=== PATIENT | male | born 1950 | race Caucasian/White ===

== ENCOUNTER 2025-07-11 11:12 | Outpatient (REF) | payer MEDICARE, SELFPAY ==
[2025-07-11 11:26] LABS: MANUAL DIFF FLAG NO
[2025-07-11 11:27] LABS: Hematocrit 50.4 % (42.0-52.0); Hemoglobin 17.3 g/dl (14.0-18.0); Imm Gran Abs Auto 0.03 X10*3/uL (0.00-0.03); Imm Gran Pct Auto 0.4 % (0.0-0.4); Lymphocytes Absolute Auto 1.7 X10*3/uL (1.2-4.9); Mean Corpuscular HGB Conc 34.3 g/dl (31.0-36.0); Mean Corpuscular Hemoglobin 28.9 pg (27.0-33.0); Mean Corpuscular Volume 84.3 fL (80.0-98.0); NRBC Abs Auto 0.000 X10*3/uL (0.0-0.012); NRBC Pct Auto 0.0 /100WBC (0.0-0.2); Platelet Count 258 X10*3/uL (160-400); Red Blood Count 5.98 X10*6/uL (4.60-5.80); White Blood Count 8.5 X10*3/uL (4.8-10.8)
--- OUTSIDE RECORDS SUMMARY | 2025-07-11 15:18 | XMS_ITS | Clinical Summary ---
Author Organization [facility] [employer] Address [address] [facility] [place] [address] Care Team Providers Care Mold Cleaning And Storage Supervisor Name Role Phone Pcp, No Primary Care Provider Social History Tobacco Use Types Packs/Day Years Used Date Smoking Tobacco: Never Assessed Sex and Gender Information Value Date Recorded Sex Assigned at Not on file Legal Sex Male 3:49 PM EST Gender Identity Not on file Sexual Orientation Not on file Plan of Treatment Health Maintenance Due Date Last Done Comments Colorectal Cancer: COLONOSCO PY Screening every 10 yrs (or Modifier) 1952 Depression: Screening Annual ly using PHQ-2/9 in Adults 18 yrs or above (or HM Modifier)([facility]) 1970 Hepatitis C Virus Infection in Adolescents and Adults: Screening (or Modifier) ([facility]) 1970 SDNC Screening Reminder: Yesi atkins for all adults ([facility]) 1970 Tobacco Smoking Cessation: i n Adults excluding Women: Behavioral and Pharmacotherapy Interventions ([facility]) 1970 DTaP/Tdap/Td Vaccines ([facility]) (1 - Tdap) 1971 Colorectal Cancer Screening 45 -75 Yrs (or HM Modifier ) 1997 Colorectal Cancer: FLEXIBLE SIGMOIDOSCOPY Screening every 5 yrs 1997 Colorectal Cancer: Fecal Imm unochemical Test (FIT) Annually [facility] 1997 Colorectal Cancer: High-sens itivity gFOBT Screening Annually [facility] 1997 Colorectal Cancer: Stool Col oguard Screening every 3 yrs 1997 Colorectal Cancer:CT Colonography Screening every 5 yr s 1997 Pneumococcal Vaccination Scr eening: Patients 50+ yrs of age ([facility]) (1 of 1 - PCV) 2002 Zoster/Shingles Vaccine Seri es Screening: Adults aged 18+ yrs (or HM Modifiers)([facility]) (1 of 2) 2002 Flu Vaccination: Ages 65+: Y early High Dose Recommended (or Modifier)([facility]) 05/26/2025 RSV Vaccines (1 - 1-dose 75+ series) 2027 Medical Devices Not on file Insurance [facility] Care Teams Mold Cleaning And Storage Supervisor Relationship Specialty Start Date End Date Pcp, Savanah PCP - General Family Medicine 12/08/21
== END 2025-07-11 11:13 | disposition home or self-care (01) ==
LOC: HO.BBR 11:12
PROVIDERS: PCP Family Medicine; Visit Provider Nurse Practitioner Family
DX: D45 Polycythemia vera (principal)
CPT/HCPCS: 36415; 85014; 85018; 85025; 99195

== ENCOUNTER 2025-07-25 10:57 | Outpatient (REF) | payer MEDICARE, SELFPAY ==
[2025-07-25 11:07] LABS: MANUAL DIFF FLAG NO
[2025-07-25 11:10] LABS: Hematocrit 51.9 % (42.0-52.0); Hemoglobin 17.9 g/dl (14.0-18.0); Imm Gran Abs Auto 0.03 X10*3/uL (0.00-0.03); Imm Gran Pct Auto 0.3 % (0.0-0.4); Lymphocytes Absolute Auto 2.4 X10*3/uL (1.2-4.9); Mean Corpuscular HGB Conc 34.5 g/dl (31.0-36.0); Mean Corpuscular Hemoglobin 29.1 pg (27.0-33.0); Mean Corpuscular Volume 84.3 fL (80.0-98.0); NRBC Abs Auto 0.000 X10*3/uL (0.0-0.012); NRBC Pct Auto 0.0 /100WBC (0.0-0.2); Platelet Count 312 X10*3/uL (160-400); Red Blood Count 6.16 X10*6/uL (4.60-5.80); White Blood Count 11.3 X10*3/uL (4.8-10.8)
[2025-07-25 12:16] LABS: Alanine Aminotransferase 38 U/L (0-40); Albumin Level 4.7 g/dL (3.5-5.0); Alkaline Phosphatase 59 U/L (39-117); Anion Gap 16 (12-20); Aspartate Amino Transferase 54 U/L (5-37); Blood Urea Nitrogen 30 mg/dL (9-16); Calcium 9.6 mg/dL (8.4-10.2); Carbon Dioxide 25 mmol/L (22-29); Chloride 106 mmol/L (96-108); Estimated Glomerular Filt Rate 54; Ferritin 277 ng/mL (20-250); Iron 155 mcg/dL (45-160); Percent Iron Saturation 40 % (15-50); Potassium 4.5 mmol/L (3.3-5.1); Sodium 142 mmol/L (135-145); Total Iron Binding Capacity 384 mcg/dL (228-428); Total Protein 7.7 g/dL (6.5-8.0); Unsaturated Iron Binding 229 ug/dL; Uric Acid 7.3 mg/dL (3.4-7.0)
== END 2025-07-25 10:58 | disposition home or self-care (01) ==
LOC: HO.BBR 10:57
PROVIDERS: PCP Family Medicine; Visit Provider Nurse Practitioner Family
DX: D45 Polycythemia vera (principal)
CPT/HCPCS: 36415; 80053; 82728; 83540; 84550; 85025; 99195

== ENCOUNTER 2025-08-10 10:58 | Outpatient (REF) | payer MEDICARE, SELFPAY ==
[2025-08-10 11:09] LABS: MANUAL DIFF FLAG NO
[2025-08-10 11:12] LABS: Hematocrit 46.5 % (42.0-52.0); Hemoglobin 15.2 g/dl (14.0-18.0); Imm Gran Abs Auto 0.03 X10*3/uL (0.00-0.03); Imm Gran Pct Auto 0.3 % (0.0-0.4); Lymphocytes Absolute Auto 1.7 X10*3/uL (1.2-4.9); Mean Corpuscular HGB Conc 32.7 g/dl (31.0-36.0); Mean Corpuscular Hemoglobin 28.2 pg (27.0-33.0); Mean Corpuscular Volume 86.3 fL (80.0-98.0); NRBC Abs Auto 0.000 X10*3/uL (0.0-0.012); NRBC Pct Auto 0.0 /100WBC (0.0-0.2); Platelet Count 276 X10*3/uL (160-400); Red Blood Count 5.39 X10*6/uL (4.60-5.80); White Blood Count 9.3 X10*3/uL (4.8-10.8)
[2025-08-10 12:21] LABS: Alanine Aminotransferase 27 U/L (0-40); Albumin Level 4.3 g/dL (3.5-5.0); Alkaline Phosphatase 55 U/L (39-117); Anion Gap 13 (12-20); Aspartate Amino Transferase 35 U/L (5-37); Blood Urea Nitrogen 20 mg/dL (9-16); Calcium 9.1 mg/dL (8.4-10.2); Carbon Dioxide 25 mmol/L (22-29); Chloride 105 mmol/L (96-108); Estimated Glomerular Filt Rate > 60; Iron 50 mcg/dL (45-160); Percent Iron Saturation 15 % (15-50); Potassium 4.1 mmol/L (3.3-5.1); Sodium 139 mmol/L (135-145); Total Iron Binding Capacity 341 mcg/dL (228-428); Total Protein 7.2 g/dL (6.5-8.0); Unsaturated Iron Binding 291 ug/dL; Uric Acid 6.0 mg/dL (3.4-7.0)
[2025-08-10 12:24] LABS: Ferritin 116 ng/mL (20-250)
--- OUTSIDE RECORDS SUMMARY | 2025-08-10 13:55 | XMS_ITS | Clinical Summary ---
Author Organization [facility] [employer] Address [address] [facility] [place] [address] Care Team Providers Care Core Finisher Name Role Phone Pcp, No Primary Care Provider [phone] Social History Tobacco Use Types Packs/Day Years [...] Adults 18 yrs or above (or HM Modifier)([facility]) 1970 Hepatitis C Virus Infection in Adolescents and Adults: Screening (or Modifier) ([facility]) 1970 SDSD Screening Reminder: Yesi atkins for all adults ([facility]) 1970 Tobacco Smoking Cessation: i n Adults excluding Women: Behavioral and Pharmacotherapy Interventions ([facility]) 1970 DTaP/Tdap/Td Vaccines ([facility]) (1 - Tdap) 1971 Colorectal Cancer Screening 45 -75 Yrs (or HM Modifier ) 1997 Colorectal Cancer: FLEXIBLE SIGMOIDOSCOPY Screening every 5 yrs 1997 Colorectal Cancer: Fecal Imm unochemical Test (FIT) Annually [facility] 1997 Colorectal Cancer: High-sens itivity gFOBT Screening Annually [facility] 1997 Colorectal Cancer: Stool Col oguard Screening every 3 yrs 1997 Colorectal Cancer:CT Colonography Screening every 5 yr s 1997 Pneumococcal Vaccination Scr eening: Patients 50+ yrs of age ([facility]) (1 of 1 - PCV) 2002 Zoster/Shingles Vaccine Seri es Screening: Adults aged 18+ yrs (or HM Modifiers)([facility]) (1 of 2) 2002 Flu Vaccination: Ages 65+: Y early High Dose Recommended (or Modifier)([facility]) 05/26/2025 COVID-19 Vaccine Screening: Initial Series and Booster Status ([facility]) (2023- season) 2025 RSV Vaccines (1 - 1-dose 75+ series) 2027 Medical Devices Not on file Insurance [facility] Care Teams Core Finisher Relationship Specialty Start Date End Date Pcp, Savanah PCP - General Family Medicine 12/08/21
== END 2025-08-10 10:59 | disposition home or self-care (01) ==
LOC: HO.BBR 10:58
PROVIDERS: PCP Family Medicine; Visit Provider Nurse Practitioner Family
DX: D45 Polycythemia vera (principal)
CPT/HCPCS: 36415; 80053; 82728; 83540; 84550; 85018; 85025; 99195

== ENCOUNTER 2025-08-24 10:51 | Outpatient (REF) | payer MEDICARE, SELFPAY ==
[2025-08-24 11:01] LABS: MANUAL DIFF FLAG NO
[2025-08-24 11:03] LABS: Hematocrit 48.8 % (42.0-52.0); Hemoglobin 15.9 g/dl (14.0-18.0); Imm Gran Abs Auto 0.04 X10*3/uL (0.00-0.03); Imm Gran Pct Auto 0.4 % (0.0-0.4); Lymphocytes Absolute Auto 2.1 X10*3/uL (1.2-4.9); Mean Corpuscular HGB Conc 32.6 g/dl (31.0-36.0); Mean Corpuscular Hemoglobin 28.4 pg (27.0-33.0); Mean Corpuscular Volume 87.3 fL (80.0-98.0); NRBC Abs Auto 0.000 X10*3/uL (0.0-0.012); NRBC Pct Auto 0.0 /100WBC (0.0-0.2); Platelet Count 257 X10*3/uL (160-400); Red Blood Count 5.59 X10*6/uL (4.60-5.80); White Blood Count 9.3 X10*3/uL (4.8-10.8)
[2025-08-24 11:54] LABS: Alanine Aminotransferase 23 U/L (0-40); Albumin Level 4.6 g/dL (3.5-5.0); Alkaline Phosphatase 57 U/L (39-117); Anion Gap 12 (12-20); Aspartate Amino Transferase 39 U/L (5-37); Blood Urea Nitrogen 18 mg/dL (9-16); Calcium 9.3 mg/dL (8.4-10.2); Carbon Dioxide 27 mmol/L (22-29); Chloride 103 mmol/L (96-108); Estimated Glomerular Filt Rate 60; Iron 100 mcg/dL (45-160); Percent Iron Saturation 27 % (15-50); Potassium 4.0 mmol/L (3.3-5.1); Sodium 138 mmol/L (135-145); Total Iron Binding Capacity 375 mcg/dL (228-428); Total Protein 7.9 g/dL (6.5-8.0); Unsaturated Iron Binding 275 ug/dL; Uric Acid 5.6 mg/dL (3.4-7.0)
[2025-08-24 12:14] LABS: Ferritin 74 ng/mL (20-250)
--- OUTSIDE RECORDS SUMMARY | 2025-08-24 13:34 | XMS_ITS | Clinical Summary ---
Author Organization [facility] [employer] Address [address] [facility] [place] [address] Care Team Providers Care Rn Informatics Name Role Phone Pcp, No Primary Care Provider [phone] Social History Tobacco Use Types Packs/Day Years [...] Adults 18 yrs or above (or HM Modifier)([facility]) 1970 Hepatitis C Virus Infection in Adolescents and Adults: Screening (or Modifier) ([facility]) 1970 SDOK Screening Reminder: Yesi atkins for all adults ([facility]) 1970 Tobacco Smoking Cessation: i n Adults excluding Women: Behavioral and Pharmacotherapy Interventions ([facility]) 1970 DTaP/Tdap/Td Vaccines ([facility]) (1 - Tdap) 1971 Colorectal Cancer Screening 45 -75 Yrs (or HM Modifier ) 1997 Colorectal Cancer: FLEXIBLE SIGMOIDOSCOPY Screening every 5 yrs 1997 Colorectal Cancer: Fecal Imm unochemical Test (FIT) Annually [facility] 1997 Colorectal Cancer: High-sens itivity gFOBT Screening Annually [facility] 1997 Colorectal Cancer: Stool Col oguard Screening every 3 yrs 1997 Colorectal Cancer:CT Colonography Screening every 5 yr s 1997 Pneumococcal Vaccination Scr eening: Patients 50+ yrs of age ([facility]) (1 of 1 - PCV) 2002 Zoster/Shingles Vaccine Seri es Screening: Adults aged 18+ yrs (or HM Modifiers)([facility]) (1 of 2) 2002 Flu Vaccination: Ages 65+: Y early High Dose Recommended (or Modifier)([facility]) 05/26/2025 COVID-19 Vaccine Screening: Initial Series and Booster Status ([facility]) ( - 2024- season) 2025 RSV Vaccines (1 - 1-dose 75+ series) 2027 Medical Devices Not on file Insurance [facility] Care Teams Rn Informatics Relationship Specialty Start Date End Date Pcp, Savanah PCP - General Family Medicine 12/08/21
== END 2025-08-24 10:52 | disposition home or self-care (01) ==
LOC: HO.BBR 10:51
PROVIDERS: PCP Family Medicine; Visit Provider Nurse Practitioner Family
DX: D45 Polycythemia vera (principal)
CPT/HCPCS: 36415; 80053; 82728; 83540; 84550; 85018; 85025; 99195

== ENCOUNTER 2025-09-06 11:03 | Outpatient (REF) | payer MEDICARE, SELFPAY ==
[2025-09-06 11:13] LABS: MANUAL DIFF FLAG NO
[2025-09-06 11:15] LABS: Hematocrit 46.5 % (42.0-52.0); Hemoglobin 15.3 g/dl (14.0-18.0); Imm Gran Abs Auto 0.03 X10*3/uL (0.00-0.03); Imm Gran Pct Auto 0.3 % (0.0-0.4); Lymphocytes Absolute Auto 2.5 X10*3/uL (1.2-4.9); Mean Corpuscular HGB Conc 32.9 g/dl (31.0-36.0); Mean Corpuscular Hemoglobin 28.7 pg (27.0-33.0); Mean Corpuscular Volume 87.2 fL (80.0-98.0); NRBC Abs Auto 0.000 X10*3/uL (0.0-0.012); NRBC Pct Auto 0.0 /100WBC (0.0-0.2); Platelet Count 349 X10*3/uL (160-400); Red Blood Count 5.33 X10*6/uL (4.60-5.80); White Blood Count 9.6 X10*3/uL (4.8-10.8)
[2025-09-06 12:06] LABS: Alanine Aminotransferase 24 U/L (0-40); Albumin Level 4.6 g/dL (3.5-5.0); Alkaline Phosphatase 55 U/L (39-117); Anion Gap 13 (12-20); Aspartate Amino Transferase 43 U/L (5-37); Blood Urea Nitrogen 22 mg/dL (9-16); Calcium 9.3 mg/dL (8.4-10.2); Carbon Dioxide 27 mmol/L (22-29); Chloride 103 mmol/L (96-108); Estimated Glomerular Filt Rate 58; Iron 67 mcg/dL (45-160); Percent Iron Saturation 18 % (15-50); Potassium 4.5 mmol/L (3.3-5.1); Sodium 138 mmol/L (135-145); Total Iron Binding Capacity 376 mcg/dL (228-428); Total Protein 7.9 g/dL (6.5-8.0); Unsaturated Iron Binding 309 ug/dL; Uric Acid 6.0 mg/dL (3.4-7.0)
[2025-09-06 12:24] LABS: Ferritin 50 ng/mL (20-250)
--- OUTSIDE RECORDS SUMMARY | 2025-09-06 13:39 | XMS_ITS | Clinical Summary ---
Author Organization [facility] Address [address] [place] [address] Care Team Providers Care Bilingual Kindergarten Teacher Name Role Phone Pcp, No Primary Care Provider [phone] Social History Tobacco Use Types Packs/Day Years Used Date Smoking Tobacco: Never Assessed Sex and Gender Information Value Date Recorded Sex Assigned at Not on file Legal Sex Male 3:49 PM EST Gender Identity Not on file Sexual Orientation Not on file Plan of Treatment Not on file Medical Devices Not on file Insurance [facility] Care Teams Bilingual Kindergarten Teacher Relationship Specialty Start Date End Date Pcp, Savanah PCP - General Family Medicine 12/08/21
== END 2025-09-06 11:04 | disposition home or self-care (01) ==
LOC: HO.BBR 11:03
PROVIDERS: PCP Family Medicine; Visit Provider Nurse Practitioner Family
DX: D45 Polycythemia vera (principal)
CPT/HCPCS: 36415; 80053; 82728; 83540; 84550; 85018; 85025; 99195

== ENCOUNTER 2025-09-20 10:56 | Outpatient (REF) | payer MEDICARE, SELFPAY ==
[2025-09-20 11:09] LABS: MANUAL DIFF FLAG NO
[2025-09-20 11:13] LABS: Hematocrit 43.3 % (42.0-52.0); Hemoglobin 14.0 g/dl (14.0-18.0); Imm Gran Abs Auto 0.03 X10*3/uL (0.00-0.03); Imm Gran Pct Auto 0.3 % (0.0-0.4); Lymphocytes Absolute Auto 2.4 X10*3/uL (1.2-4.9); Mean Corpuscular HGB Conc 32.3 g/dl (31.0-36.0); Mean Corpuscular Hemoglobin 27.6 pg (27.0-33.0); Mean Corpuscular Volume 85.2 fL (80.0-98.0); NRBC Abs Auto 0.000 X10*3/uL (0.0-0.012); NRBC Pct Auto 0.0 /100WBC (0.0-0.2); Platelet Count 302 X10*3/uL (160-400); Red Blood Count 5.08 X10*6/uL (4.60-5.80); White Blood Count 9.5 X10*3/uL (4.8-10.8)
[2025-09-20 12:17] LABS: Alanine Aminotransferase 25 U/L (0-40); Albumin Level 4.6 g/dL (3.5-5.0); Alkaline Phosphatase 55 U/L (39-117); Anion Gap 11 (12-20); Aspartate Amino Transferase 39 U/L (5-37); Blood Urea Nitrogen 18 mg/dL (9-16); Calcium 9.4 mg/dL (8.4-10.2); Carbon Dioxide 28 mmol/L (22-29); Chloride 104 mmol/L (96-108); Estimated Glomerular Filt Rate 59; Iron 27 mcg/dL (45-160); Percent Iron Saturation 7 % (15-50); Potassium 3.9 mmol/L (3.3-5.1); Sodium 139 mmol/L (135-145); Total Iron Binding Capacity 392 mcg/dL (228-428); Total Protein 7.7 g/dL (6.5-8.0); Unsaturated Iron Binding 365 ug/dL; Uric Acid 6.4 mg/dL (3.4-7.0)
[2025-09-20 12:34] LABS: Ferritin 33 ng/mL (20-250)
== END 2025-09-20 10:57 | disposition home or self-care (01) ==
LOC: HO.BBR 10:56
PROVIDERS: PCP Family Medicine; Visit Provider Nurse Practitioner Family
DX: D45 Polycythemia vera (principal)
CPT/HCPCS: 36415; 80053; 82728; 83540; 84550; 85018; 85025; 99195

== ENCOUNTER → 2025-09-25 09:20 | Outpatient (BNV) | payer MEDICARE, SELFPAY | PROVIDERS: PCP Family Medicine; Referring Provider Family Medicine; Visit Provider Nurse Practitioner Family | DX: D45 Polycythemia vera (principal) | CPT/HCPCS: 99204; 99213 ==

== ENCOUNTER 2025-10-11 08:53 | Outpatient (REF) | payer MEDICARE, SELFPAY ==
--- NOTE | ~2025-10-11 | US_ITS ---
EXAMINATION: US ABDOMEN COMPLETE CLINICAL INFORMATION: Left upper quadrant pain. COMPARISON: None available. TECHNIQUE: Real-time ultrasound of the abdomen using grayscale technique. FINDINGS: PANCREAS: No peripancreatic fluid collections. ABDOMINAL AORTA: The proximal, mid, and distal segments are normal in caliber. INFERIOR VENA CAVA: Visualized portions are normal. LIVER: Liver measures 20 cm. Increased echotexture. No nodular surface. No solid or cystic lesion. No intrahepatic biliary ductal dilatation. GALLBLADDER: Intraluminal hyperechoic mobile lesion with posterior shadowing measuring 1 cm maximum dimension. No pericholecystic fluid collection or gallbladder wall thickening. COMMON BILE DUCT 6 mm. RIGHT KIDNEY: 15 cm. Normal echotexture. No hydronephrosis. Renal cortical thickness is normal. There is a 4.5 cm exophytic mixed iso and hypoechoic lesion in the upper pole with the peripheral flow on color Doppler interrogation. There is a 4 cm exophytic thin septated anechoic lesion in the midportion without flow on color Doppler interrogation. Questionable nodular component.. LEFT KIDNEY: 12 cm. Normal echotexture. Renal cortical thickness is normal. No hydronephrosis. No solid or cystic lesion.. SPLEEN: 11 cm. No gross solid or cystic lesion.. FREE FLUID: None. US/US abdomen complete IMPRESSION: 4.5 cm exophytic mass, right kidney. Recommend dedicated IV contrast enhanced CT versus MRI renal mass protocol for further imaging elevation. Cholelithiasis. Hepatomegaly and hepatic steatosis. No hydronephrosis. 4 cm septated cystic lesion, right kidney. Findings communicated via [employer] connect to the nurse practitioner, Sarita Park on October 11, 2025 at 11:22 AM Electronically signed by: Chas Voss MD 10/11/2025 11:24 AM [facility]
--- OUTSIDE RECORDS SUMMARY | 2025-10-11 09:35 | XMS_ITS | Clinical Summary ---
Author Organization [facility] Address [address] [place] [address] Care Team Providers Care Dobby Loom Weaver Name Role Phone Pcp, No Primary Care Provider [phone] Social History Tobacco Use Types Packs/Day Years Used Date Smoking Tobacco: Never Assessed Sex and Gender Information Value Date Recorded Sex Assigned at Not on file Legal Sex Male 3:49 PM EST Gender Identity Not on file Sexual Orientation Not on file Plan of Treatment Not on file Medical Devices Not on file Insurance [facility] Care Teams Dobby Loom Weaver Relationship Specialty Start Date End Date Pcp, Savanah PCP - General Family Medicine 12/08/21
== END 2025-10-11 08:54 | disposition home or self-care (01) ==
LOC: HO.US 08:53
PROVIDERS: PCP Family Medicine; Visit Provider Nurse Practitioner Family
DX: D45 Polycythemia vera (principal); R10.12 Left upper quadrant pain
CPT/HCPCS: 76700

== ENCOUNTER → 2025-10-11 08:55 | Outpatient (BNV) | payer MEDICARE, SELFPAY | PROVIDERS: PCP Family Medicine; Visit Provider Radiology Diagnostic Radiology | DX: K80.20 Calculus of gallbladder without cholecystitis without obstruction (principal); K76.0 Fatty (change of) liver, not elsewhere classified; R16.0 Hepatomegaly, not elsewhere classified; N28.89 Other specified disorders of kidney and ureter | CPT/HCPCS: 76700 ==

== ENCOUNTER 2025-10-13 13:00 | Outpatient (REF) | payer MEDICARE, SELFPAY ==
--- OUTSIDE RECORDS SUMMARY | 2025-10-11 23:59 | XMS_ITS | Continuity of Care Document ---
Author Organization [facility] Address [address] [place] [address]- Care Team Providers Care Net Software Architect Name Role Phone Arvin ESTRADA, Stephanie Ray Primary Care Physician Encounter [facility] ACCT R [id number] Date(s): 08/12/25 - 10/11/25 [facility] [address] [place] [id number] Attending Physician: Aditya Reed MD Referring Physician: Dorian Crump MD Encounter Type: Pre Office Visit Allergies, Adverse Reactions, Alerts Substance Criticality Severity Reaction Reaction Severity Status ciprofloxacin Active penicillin Active sulfa drugs Active Dilantin Active Bee Stings Active Immunizations Given and Recorded Vaccine Date Status Refusal Reason pneumococcal 20-valent conjugate vaccine 08/29/23 Recorded SARS-CoV-2(COVID-19)mRNA-LNP vac([id number]) 08/29/23 Recorded SARS-CoV-2 (COVID-19) mRNA-1273 vaccine 09/16/22 R ecorded SARS-CoV-2 (COVID-19) mRNA-1273 vaccine 08/19/22 R ecorded pneumococcal 23-valent vaccine 1 07/09/22 Given pneumococcal 13-valent vaccine 06/26/17 Given Pneumococcal Vaccine (oldterm) 2 10/30/10 Given tetanus-diphtheria toxoids (Td) 3 10/26/03 Given 1Result Comment: [facility]: [id number] 2Admin Note: PATIENT REFUSED 3Admin Note: per pt. Medications Accu-Check Guide Lancets Accu-Check Guide Lancets, See Instructions, # 200 each, Refills 1, Tot. Refills 1, Maintenance, Accu-Check Guide Lancets dx: E11.9 DM Type ii test blood sugars twice daily, 10/01/24 4:41:00 PM EST, Supply, 175, cm, 04/08/24 17:12:00 EDT, Height Start Date: 10/01/24 Status: Ordered Medication Dispense Status: Completed Quantity: 200.0 Unit: each Total Allowed Fills: 2 Fills Dispensed: 0 Indications: Type 2 diabetes mellitus without complications; Accu-Check Guide Meter Accu-Check Guide Meter, See Instructions, # 1 each, Refills 0, Tot. Refills 0, Maintenance, Accu-Check Guide Meter dx: E11.9 DM Type ii test blood sugars twice daily, 03/25/24 4:27:00 PM EDT, Supply, 175, cm, 11/30/23 9:38:00 EST, Height, 95.45, kg, 08/01/22 16:29:00 EDT, Dry Weight Start Date: 03/25/24 Status: Ordered Medication Dispense Status: Completed Quantity: 1.0 Unit: each Total Allowed Fills: 1 Fills Dispensed: 0 Indications: Type 2 diabetes mellitus without complications; Accu-Check Guide Test Strips Accu-Check Guide Test Strips, See Instructions, # 400 each, Refills 6, Tot. Refills 6, Maintenance,Accu-Check Guide Test Strips dx: E11.9 DM Type ii test blood sugars four times daily. PLEASE GIVE FULL SCRIPT OF 400, 11/10/24 3:59:00 PM EST, Supply, 175, cm, 04/08/24 17:12:00 EDT, Height Start Date: 11/10/24 Status: Ordered Medication Dispense Status: Completed Quantity: 400.0 Unit: each Total Allowed Fills: 7 Fills Dispensed: 0 Indications: Type 2 diabetes mellitus without complications; ACCU-CHEK FASTCLIX LANCETS 102'S ACCU-CHEK FASTCLIX LANCETS 102'S, See Instructions, # 204 each, 1 Refills, Maintenance, USE DIRECTED TO TEST TWICE DAILY, 11/03/23 9:04:00 AM EST, 175, cm, 09/18/23 12:40:00 EST, Height, 95.45, kg, 08/01/22 16:29:00 EDT, Dry Weight Start Date: 11/03/23 Status: Ordered Medication Dispense Status: Completed Quantity: 204.0 Unit: each Total Allowed Fills: 1 Fills Dispensed: 0 ACCU-CHEK FASTCLIX LANCETS 102'S ACCU-CHEK FASTCLIX LANCETS 102'S, See Instructions, # 204 each, 0 Refills, Maintenance, USE DIRECTED TO TEST TWICE DAILY, 02/02/24 6:49:00 PM EDT, 175, cm, 11/30/23 9:38:00 EST, Height, 95.45, kg, 08/01/22 16:29:00 EDT, Dry Weight Start Date: 02/02/24 Status: Ordered Medication Dispense Status: Completed Quantity: 204.0 Unit: each Total Allowed Fills: 1 Fills Dispensed: 0 ACCU-CHEK FASTCLIX LANCETS 102'S ACCU-CHEK FASTCLIX LANCETS 102'S, See Instructions, # 204 each, 1 Refills, Maintenance, USE DIRECTED TO TEST TWICE DAILY, 05/07/23 12:53:00 PM EDT, 175, cm, 03/06/23 7:57:00 EDT, Height, 95.45, kg,08/01/22 16:29:00 EDT, Dry Weight Start Date: 05/07/23 Status: Ordered Medication Dispense Status: Completed Quantity: 204.0 Unit: each Total Allowed Fills: 1 Fills Dispensed: 0 ACCU-CHEK GUIDE TEST STRIPS 100S ACCU-CHEK GUIDE TEST STRIPS 100S, See Instructions, # 300 Unknown, 7 Refills, Maintenance, USE TO CHECK BLOOD GLUCOSE FOUR TIMES DAILY, 10/26/23 8:39:00 PM EST, 175, cm, 09/18/23 12:40:00 EST, Height, 95.45, kg, 08/01/22 16:29:00 EDT, Dry Weight Start Date: 10/26/23 Status: Ordered Medication Dispense Status: Completed Quantity: 300.0 Unit: Unknown Total Allowed Fills: 1 Fills Dispensed: 0 ACCU-CHEK GUIDE TEST STRIPS 100S ACCU-CHEK GUIDE TEST STRIPS 100S, See Instructions, # 300 Unknown, 0 Refills, Maintenance, USE TO CHECK BLOOD GLUCOSE FOUR TIMES DAILY, 07/31/23 9:43:00 AM EDT, 175, cm, 03/06/23 7:57:00 EDT, Height, 95.45, kg, 08/01/22 16:29:00 EDT, Dry Weight Start Date: 07/31/23 Status: Ordered Medication Dispense Status: Completed Quantity: 300.0 Unit: Unknown Total Allowed Fills: 1 Fills Dispensed: 0 ALPRAZolam 1 mg oral tablet See Instructions, 1 tablet in the AM, 2 in the PM dx: chronic anxiety Fill early 10/13/25 due to holiday travel Controlled Substance Contract in place, # 84 each, 0 Refills, Maintenance, 10/10/25 12:25:00 PM EST, [facility] #[id number], 173, cm, 06/20/25 7:35:00 EDT, Height, 93.4, kg, 252:09:00 EDT, Dry Weight Start Date: 10/10/25 Status: Ordered Medication Dispense Status: Completed Quantity: 84.0 Unit: each Total Allowed Fills: 1 Fills Dispensed: 0 amLODIPine 10 mg oral tablet 1 tablet, By Mouth, Daily, # 90 tablet, 3 Refills, Maintenance, 12/20/24 9:01:00 AM EST, [facility] #[id number], 175, cm, 12/20/24 8:43:00 EST, Height Start Date: 12/20/24 Status: Ordered Medication Dispense Status: Completed Quantity: 90.0 Unit: tablet Total Allowed Fills: 4 Fills Dispensed: 0 aspirin buffered 81 mg oral tablet 1 tablet = 81 mg, By Mouth, Daily, # 90 tablet, 3 Refills, Maintenance, 06/18/17 8:32:54 AM EDT, [facility]/pharmacy #[id number] Start Date: 06/18/17 Stop Date: 06/13/18 Status: Ordered Medication Dispense Status: Completed Quantity: 90.0 Unit: tablet Total Allowed Fills: 4 Fills Dispensed: 0 atenolol 50 mg oral tablet 1, tablet, By Mouth, 2 times a day, # 180 tablet, Refills 3, Tot. Refills 3, Maintenance, 05/18/25 10:04:00 AM EDT, Route to Pharmacy Electronically, [facility] #[id number], 173, cm, 04/03/25 2:09:00 EDT, Height, 93.4, kg, 04/03/25 2:09:00 EDT, Dry Weight Start Date: 05/18/25 Status: Ordered Medication Dispense Status: Completed Quantity: 180.0 Unit: tablet Total Allowed Fills: 4 Fills Dispensed: 0 atorvastatin 20 mg oral tablet 1 tablet, By Mouth, Daily, # 90 tablet, 3 Refills, Maintenance, 12/20/24 9:02:00 AM EST, [facility] #[id number], 175, cm, 12/20/24 8:43:00 EST, Height Start Date: 12/20/24 Status: Ordered Medication Dispense Status: Completed Quantity: 90.0 Unit: tablet Total Allowed Fills: 4 Fills Dispensed: 0 carisoprodol 350 mg oral tablet See Instructions, TAKE 1 TABLET BY MOUTH FOUR TIMES DAILY FOR SPINAL STENOSIS, # 112 tablet, 0 Refills, Maintenance, 09/13/25 1:10:00 PM EST, [facility] #[id number], 173, cm, 06/20/25 7:35:00 EDT, Height, 93.4, kg, 04/03/25 2:09:00 EDT, Dry Weight Start Date: 09/13/25 Status: Ordered Medication Dispense Status: Completed Quantity: 112.0 Unit: tablet Total Allowed Fills: 1 Fills Dispensed: 0 dexcom blood glucose monitor dexcom blood glucose monitor, See Instructions, # 1 each, Refills 0, Tot. Refills 0, Maintenance, dexcom blood glucose monitor dx/; DM2, insulin dep, 07/06/19 10:42:41 PM EDT, Compound Start Date: 07/06/19 Status: Ordered Medication Dispense Status: Completed Quantity: 1.0 Unit: each Total Allowed Fills: 1 Fills Dispensed: 0 fenofibrate 160 mg oral tablet 1 tablet, By Mouth, Daily, # 90 tablet, 1 Refills, Maintenance, 04/28/25 10:19:00 PM EDT, [facility] #[id number], 173, cm, 04/03/25 2:09:00 EDT, Height, 93.4, kg, 04/03/25 2:09:00 EDT, Dry Weight Start Date: 04/28/25 Status: Ordered Medication Dispense Status: Completed Quantity: 90.0 Unit: tablet Total Allowed Fills: 1 Fills Dispensed: 0 Fish Oil 1200 mg oral capsule 2 capsule = 2,400 mg, By Mouth, Daily, # 180 capsule, 3 Refills, Maintenance, 08/07/23 7:06:00 AM EDT, [facility] #[id number], Partial fill upon patient request if the prescription is for a schedule II opioid drug., 175, cm, 03/06/23 7:57:00 EDT, Height, 95.45, kg, 08/01/22 16:29:00 EDT, Dry Weight Start Date: 08/07/23 Stop Date: 08/01/24 Status: Ordered Medication Dispense Status: Completed Quantity: 180.0 Unit: capsule Total Allowed Fills: 4 Fills Dispensed: 0 furosemide 20 mg oral tablet 1, tablet, By Mouth, 2 times a day, # 180 tablet, Refills 3, Tot. Refills 3, Maintenance, 12/20/24 9:02:00 AM EST, Route to Pharmacy Electronically, [facility] #[id number], 175, cm, 12/20/24 8:43:00 EST, Height Start Date: 12/20/24 Status: Ordered Medication Dispense Status: Completed Quantity: 180.0 Unit: tablet Total Allowed Fills: 4 Fills Dispensed: 0 Humalog Kwik Pen 100 units/mL subcutaneous injection See Instructions, INJECT UP TO 16 UNITS UNDER THE SKIN THREE TIMES DAILY, # 90 mL, 0 Refills, Maintenance, 09/29/25 11:27:00 PM EST, [facility] #[id number], 173, cm, 06/20/25 7:35:00 EDT, Height,93.4, kg, 04/03/25 2:09:00 EDT, Dry Weight Start Date: 09/29/25 Status: Ordered Medication Dispense Status: Completed Quantity: 90.0 Unit: mL Total Allowed Fills: 1 Fills Dispensed: 0 Lantus Solostar Pen 100 units/mL subcutaneous solution See Instructions, INJECT 45 UNITS UNDER THE SKIN ONCE DAILY AT BEDTIME, # 45 mL, 5 Refills, 04/03/25 2:28:00 PM EDT, [facility] #[id number], 173, cm, 04/03/25 2:09:00 EDT, Height, 93.4, kg, 04/03/25 2:09:00 EDT, Dry Weight Start Date: 04/03/25 Status: Ordered Medication Dispense Status: Completed Quantity: 45.0 Unit: mL Total Allowed Fills: 6 Fills Dispensed: 0 levETIRAcetam 500 mg oral tablet 1 tablet, By Mouth, 3 times a day, # 270 tablet, 3 Refills, Maintenance, 06/20/25 8:06:00 AM EDT, [facility] #[id number], 173, cm, 06/20/25 7:35:00 EDT, Height, 93.4, kg, 04/03/25 2:09:00 EDT, Dry Weight Start Date: 06/20/25 Status: Ordered Medication Dispense Status: Completed Quantity: 270.0 Unit: tablet Total Allowed Fills: 4 Fills Dispensed: 0 lisinopril 40 mg oral tablet 1 tablet = 40 mg, By Mouth, Daily, # 90 tablet, 3 Refills, Maintenance, 01/23/25 10:09:00 AM EDT, Tablet, [facility] #[id number], Partial fill upon patient request if the prescription is for a schedule II opioid drug., 175, cm, 12/20/24 8:43:00 EST, Height Start Date: 01/23/25 Status: Ordered Medication Dispense Status: Completed Quantity: 90.0 Unit: tablet Total Allowed Fills: 4 Fills Dispensed: 0 mometasone 0.1% topical ointment See Instructions, APPLY TOPICALLY TO THE AFFECTED AREA DAILY FOR 14 DAYS, # 45 Gm, 3 Refills, Maintenance, 09/30/24 1:33:00 PM EST, [facility] #[id number], 20, APPLY TOPICALLY TO THE AFFECTED AREA DAILY FOR 14 DAYS, 175, cm, 04/08/24 17:12:00 EDT, Height Start Date: 09/30/24 Status: Ordered Medication Dispense Status: Completed Quantity: 45.0 Unit: g Total Allowed Fills: 4 Fills Dispensed: 0 Pen [place], 31 G x 8 mm BD Ultra Fine III See Instructions, # 200 each, Refills 1, Tot. Refills 1, Maintenance, dx: DM2 , use twice daily, 10/01/24 4:40:00 PM EST, Supply, 175, cm, 04/08/24 17:12:00 EDT, Height Start Date: 10/01/24 Status: Ordered Medication Dispense Status: Completed Quantity: 200.0 Unit: each Total Allowed Fills: 2 Fills Dispensed: 0 Peridex 0.12% liquid 15 mL = 0.018 Gm, By Mouth, 2 times a day, # 900 mL, 0 Refills, Maintenance, 05/23/22 6:53:00 PM EDT, Liquid, [facility] #[id number], Partial fill upon patient request if the prescription is for a schedule II opioid drug., 15 mL By Mouth 2 times a day,x30 days, 176, cm, 05/23/22 17:33:00 EDT, Height, 97.7, kg, 05/23/22 17:33:00 EDT, Dry Weight Start Date: 05/23/22 Stop Date: 06/22/22 Status: Ordered Medication Dispense Status: Completed Quantity: 900.0 Unit: mL Total Allowed Fills: 1 Fills Dispensed: 0 Soma 350 mg oral tablet 350 mg, 1, tablet, By Mouth, 4 times a day, Dx: spinal stenosis Fill early 10/13/25 due to holiday travel Controlled Substance Contract in place, # 112 tablet, Refills 0, Tot. Refills 0, Maintenance,10/10/25 12:25:00 PM EST, Route to Pharmacy Electronically, [facility] #[id number], 173, cm, 06/20/25 7:35:00 EDT, Height, 93.4, kg, 04/03/25 2:09:00 EDT, Dry Weight Start Date: 10/10/25 Status: Ordered Medication Dispense Status: Completed Quantity: 112.0 Unit: tablet Total Allowed Fills: 1 Fills Dispensed: 0 Problem List Condition Confirmation Course Effective Dates Status Health Status Informant Anxiety depression Confirmed Active Detached retina Confirmed Active Diabetes mellitus - adult onset Confirmed Active Duodenal ulcer Confirmed Active JACKELIN (generalized anxiety disorder) Confirmed Active Hypercholesterolemia Confirmed Active Hyperglycemia Confirmed Active Hypertension Confirmed Active Obese class I Confirmed Active Panic attack Confirmed Active Polycythemia vera Confirmed Active Social History Social History Type Response Smoking Status Never (less than 100 in lifetime); Tobacco user in household: No entered on: 07/11/21 Sexual Orientation Self described orien tation: ; Straight or heterosexual Sex Sex Representation Male (finding) Patient Care team information Care Team Personnel Name: Stephanie Sheridan MD Position: [facility] Physician - Primary Care Member Role: PCP Address: [address] [place] [address] [place] [address]- [place] Telecom: Name: Haylee Alcaraz [place] Position: [facility] Office Staff Member Role: Primary Care Nurse Name: Orlin Maldonado DO Position: Reference Physician Member Role: Lifetime Consulting Physician Address: [address] [place] [id number]- Telecom: Name: Shaina Wilde RN Position: [facility] RN Member Role: Primary Care Nurse Care Team Related Persons Name: SALEEM REEDER Insurance Providers Guarantor name: SABINE REEDER Health Plan Information #: 1 Payer: [place] [employer] Payer Identifier: NA Member Number: [id number] Group Number: [id number] Subscriber Identifier: [id number] Relationship to Subscriber: self Coverage Type: NA Coverage Verification Date: NA Telecom: NA Address: NA
--- OUTSIDE RECORDS SUMMARY | 2025-10-11 23:59 | XMS_ITS | Continuity of Care Document ---
Author Organization [facility] Address [address] [place] [address]- Care Team Providers Care Sale Professional Digital Marketing Name Role Phone Arvin ESTRADA, Stephanie Ray Primary Care Physician [phone] Encounter [facility] Date(s): 09/11/25 - 10/11/25 [facility] [address] [place] [id number] Attending Physician: Admtr, Didier Admitting Physician: AdmtrDidier Referring Physician: Admtr, Ar8 Encounter Type: Triage Allergies, Adverse Reactions, Alerts Substance Criticality Severity Reaction Reaction Severity Status ciprofloxacin Active penicillin Active Dilantin Active sulfa drugs Active Bee Stings Active Immunizations Given and Recorded Vaccine Date Status Refusal Reason pneumococcal 20-valent conjugate vaccine 08/29/23 Recorded SARS-CoV-2(COVID-19)mRNA-LNP vac([id number]) 08/29/23 Recorded SARS-CoV-2 (COVID-19) mRNA-1273 vaccine 09/16/22 R ecorded SARS-CoV-2 (COVID-19) mRNA-1273 vaccine 08/19/22 R ecorded pneumococcal 23-valent vaccine 1 07/09/22 Given pneumococcal 13-valent vaccine 06/26/17 Given Pneumococcal Vaccine (oldterm) 2 10/30/10 Given tetanus-diphtheria toxoids (Td) 3 10/26/03 Given 1Result Comment: [facility]: [id number] 2Admin Note: PATIENT REFUSED 3Admin Note: per [...] 0 Refills, Maintenance, 10/10/25 12:25:00 PM EST, [facility] #[id number], 173, cm, 06/20/25 7:35:00 EDT, Height, 93.4, kg, 04/03/25 2:09:00 EDT, Dry Weight Start Date: 10/10/25 Status: Ordered Medication Dispense Status: Completed Quantity: 84.0 Unit: each Total Allowed Fills: 1 Fills Dispensed: 0 amLODIPine 10 mg oral tablet 1 tablet, By Mouth, Daily, # 90 tablet, 3 Refills, Maintenance, 12/20/24 9:01:00 AM EST, [facility] #[id number], 175, cm, 12/20/24 8:43:00 EST, Height Start Date: 12/20/24 Status: Ordered Medication Dispense Status: Completed Quantity: 90.0 Unit: tablet Total Allowed Fills: 4 Fills Dispensed: 0 aspirin buffered 81 mg oral tablet 1 tablet = 81 mg, By Mouth, Daily, # 90 tablet, 3 Refills, Maintenance, 06/18/17 8:32:54 AM EDT, [facility]/pharmacy #[id number] Start Date: 06/18/17 Stop Date: 06/13/18 Status: Ordered Medication Dispense Status: Completed Quantity: 90.0 Unit: tablet Total Allowed Fills: 4 Fills Dispensed: 0 atenolol 50 mg oral tablet 1, tablet, By Mouth, 2 times a day, # 180 tablet, Refills 3, Tot. Refills 3, Maintenance, 05/18/25 10:04:00 AM EDT, Route to Pharmacy Electronically, [facility] #[id number], 173, cm, 04/03/25 2:09:00 EDT, Height, 93.4, kg, 04/03/25 2:09:00 EDT, Dry Weight Start Date: 05/18/25 Status: Ordered Medication Dispense Status: Completed Quantity: 180.0 Unit: tablet Total Allowed Fills: 4 Fills Dispensed: 0 atorvastatin 20 mg oral tablet 1 tablet, By Mouth, Daily, # 90 tablet, 3 Refills, Maintenance, 12/20/24 9:02:00 AM EST, [facility] #[id number], 175, cm, 12/20/24 8:43:00 EST, Height Start Date: 12/20/24 Status: Ordered Medication Dispense Status: Completed Quantity: 90.0 Unit: tablet Total Allowed Fills: 4 Fills Dispensed: 0 carisoprodol 350 mg oral tablet See Instructions, TAKE 1 TABLET BY MOUTH FOUR TIMES DAILY FOR SPINAL STENOSIS, # 112 tablet, 0 Refills, Maintenance, 09/13/25 1:10:00 PM EST, [facility] #[id number], 173, cm, 06/20/25 7:35:00 EDT, Height, 93.4, [...] 1 Refills, Maintenance, 04/28/25 10:19:00 PM EDT, [facility] #04734, 173, cm, 04/03/25 2:09:00 EDT, Height, 93.4, kg, 04/03/25 2:09:00 EDT, Dry Weight Start Date: 04/28/25 Status: Ordered Medication Dispense Status: Completed Quantity: 90.0 Unit: tablet Total Allowed Fills: 1 Fills Dispensed: 0 Fish Oil 1200 mg oral capsule 2 capsule = 2,400 mg, By Mouth, Daily, # 180 capsule, 3 Refills, Maintenance, 08/07/23 7:06:00 AM EDT, [facility] #[id number], Partial fill upon patient request if the [...] 9:02:00 AM EST, Route to Pharmacy Electronically, [facility] #[id number], 175, cm, 12/20/24 8:43:00 EST, Height Start Date: 12/20/24 Status: Ordered Medication Dispense Status: Completed Quantity: 180.0 Unit: tablet Total Allowed Fills: 4 Fills Dispensed: 0 Humalog Kwik Pen 100 units/mL subcutaneous injection See Instructions, INJECT UP TO 16 UNITS UNDER THE SKIN THREE TIMES DAILY, # 90 mL, 0 Refills, Maintenance, 09/29/25 11:27:00 PM EST, [facility] #06996, 173, cm, 06/20/25 7:35:00 EDT, Height,93.4, kg, 04/03/25 2:09:00 EDT, Dry Weight Start Date: 09/29/25 Status: Ordered Medication Dispense Status: Completed Quantity: 90.0 Unit: mL Total Allowed Fills: 1 Fills Dispensed: 0 Lantus Solostar Pen 100 units/mL subcutaneous solution See Instructions, INJECT 45 UNITS UNDER THE SKIN ONCE DAILY AT BEDTIME, # 45 mL, 5 Refills, 04/03/25 2:28:00 PM EDT, [facility] #[id number], 173, cm, 04/03/25 2:09:00 EDT, Height, 93.4, kg, 04/03/25 2:09:00 EDT, Dry Weight Start Date: 04/03/25 Status: Ordered Medication Dispense Status: Completed Quantity: 45.0 Unit: mL Total Allowed Fills: 6 Fills Dispensed: 0 levETIRAcetam 500 mg oral tablet 1 tablet, By Mouth, 3 times a day, # 270 tablet, 3 Refills, Maintenance, 06/20/25 8:06:00 AM EDT, [facility] #31165, 173, cm, 06/20/25 7:35:00 EDT, Height, 93.4, kg, 04/03/25 2:09:00 EDT, Dry Weight Start Date: 06/20/25 Status: Ordered Medication Dispense Status: Completed Quantity: 270.0 Unit: tablet Total Allowed Fills: 4 Fills Dispensed: 0 lisinopril 40 mg oral tablet 1 tablet = 40 mg, By Mouth, Daily, # 90 tablet, 3 Refills, Maintenance, 01/23/25 10:09:00 AM EDT, Tablet, [facility] #09242, Partial fill upon patient request if the [...] 3 Refills, Maintenance, 09/30/24 1:33:00 PM EST, [facility] #28555, 20, APPLY TOPICALLY TO THE AFFECTED AREA DAILY FOR 14 DAYS, 175, cm, 04/08/24 17:12:00 EDT, Height Start Date: 09/30/24 Status: Ordered Medication Dispense Status: Completed Quantity: 45.0 Unit: g Total Allowed Fills: 4 Fills Dispensed: 0 Pen [place], 31 G x 8 mm BD Ultra [...] Refills, Maintenance, 05/23/22 6:53:00 PM EDT, Liquid, [facility] #44407, Partial fill upon patient request if the [...] 12:25:00 PM EST, Route to Pharmacy Electronically, [facility] #[id number], 173, cm, 06/20/25 7:35:00 EDT, Height, 93.4, [...] Team Personnel Name: Stephanie Sheridan MD Position: [facility] Physician - Primary Care Member Role: PCP Address: [address] [place] [address]- Telecom: Name: Haylee Alcaraz [place] Position: [facility] Office Staff Member Role: Primary Care Nurse Name: Orlin Maldonado DO Position: Reference Physician Member Role: Lifetime Consulting Physician Address: [address] [place] [phone]- Telecom: Name: Shaina Wilde RN Position: [facility] RN Member Role: Primary Care Nurse Care Team Related Persons Name: SALEEM REEDER Insurance Providers Guarantor name: SABINE REEDER Health Plan Information #: 1 Payer: [place]EVEDO Payer Identifier: NA Member Number: [id number] Group Number: [id number] Subscriber Identifier: NA Relationship to Subscriber: self Coverage Type: NA Coverage Verification Date: NA Telecom: NA Address: NA
--- OUTSIDE RECORDS SUMMARY | 2025-10-13 23:59 | XMS_ITS | Continuity of Care Document ---
Author Organization [facility] Address [address] [place] [address]- Care Team Providers Care Tread Builder Name Role Phone Arvin ESTRADA, Stephanie Ray Primary Care Physician Encounter [facility] Date(s): 09/13/25 - 10/13/25 [facility] [address] [place] [address]- Encounter Type: Triage Allergies, Adverse Reactions, Alerts Substance Criticality Severity Reaction Reaction Severity Status ciprofloxacin Active penicillin Active sulfa drugs Active Dilantin Active Bee Stings Active Immunizations Given and Recorded Vaccine Date Status Refusal Reason pneumococcal 20-valent conjugate vaccine 08/29/23 Recorded SARS-CoV-2(COVID-19)mRNA-LNP vac([id number]) 08/29/23 Recorded SARS-CoV-2 (COVID-19) mRNA-1273 vaccine 09/16/22 R ecorded SARS-CoV-2 (COVID-19) mRNA-1273 vaccine 08/19/22 R ecorded pneumococcal 23-valent vaccine 1 07/09/22 Given pneumococcal 13-valent vaccine 06/26/17 Given Pneumococcal Vaccine (oldterm) 2 10/30/10 Given tetanus-diphtheria toxoids (Td) 3 10/26/03 Given 1Result Comment: [facility]: [id number] 2Admin Note: PATIENT REFUSED 3Admin Note: per [...] 0 Refills, Maintenance, 10/10/25 12:25:00 PM EST, [facility] #[id number], 173, cm, 06/20/25 7:35:00 EDT, Height, 93.4, kg, :09:00 EDT, Dry Weight Start Date: 10/10/25 Status: Ordered Medication Dispense Status: Completed Quantity: 84.0 Unit: each Total Allowed Fills: 1 Fills Dispensed: 0 amLODIPine 10 mg oral tablet 1 tablet, By Mouth, Daily, # 90 tablet, 3 Refills, Maintenance, 12/20/24 9:01:00 AM EST, [facility] #87262, 175, cm, 12/20/24 8:43:00 EST, Height Start Date: 12/20/24 Status: Ordered Medication Dispense Status: Completed Quantity: 90.0 Unit: tablet Total Allowed Fills: 4 Fills Dispensed: 0 aspirin buffered 81 mg oral tablet 1 tablet = 81 mg, By Mouth, Daily, # 90 tablet, 3 Refills, Maintenance, 06/18/17 8:32:54 AM EDT, [facility]/pharmacy #1111 Start Date: 06/18/17 Stop Date: 06/13/18 Status: Ordered Medication Dispense Status: Completed Quantity: 90.0 Unit: tablet Total Allowed Fills: 4 Fills Dispensed: 0 atenolol 50 mg oral tablet 1, tablet, By Mouth, 2 times a day, # 180 tablet, Refills 3, Tot. Refills 3, Maintenance, 05/18/25 10:04:00 AM EDT, Route to Pharmacy Electronically, [facility] #[id number], 173, cm, 04/03/25 2:09:00 EDT, Height, 93.4, kg, 04/03/25 2:09:00 EDT, Dry Weight Start Date: 05/18/25 Status: Ordered Medication Dispense Status: Completed Quantity: 180.0 Unit: tablet Total Allowed Fills: 4 Fills Dispensed: 0 atorvastatin 20 mg oral tablet 1 tablet, By Mouth, Daily, # 90 tablet, 3 Refills, Maintenance, 12/20/24 9:02:00 AM EST, [facility] #66872, 175, cm, 12/20/24 8:43:00 EST, Height Start Date: 12/20/24 Status: Ordered Medication Dispense Status: Completed Quantity: 90.0 Unit: tablet Total Allowed Fills: 4 Fills Dispensed: 0 carisoprodol 350 mg oral tablet See Instructions, TAKE 1 TABLET BY MOUTH FOUR TIMES DAILY FOR SPINAL STENOSIS, # 112 tablet, 0 Refills, Maintenance, 09/13/25 1:10:00 PM EST, [facility] #57037, 173, cm, 06/20/25 7:35:00 EDT, Height, 93.4, [...] 1 Refills, Maintenance, 04/28/25 10:19:00 PM EDT, [facility] #13854, 173, cm, 04/03/25 2:09:00 EDT, Height, 93.4, kg, 04/03/25 2:09:00 EDT, Dry Weight Start Date: 04/28/25 Status: Ordered Medication Dispense Status: Completed Quantity: 90.0 Unit: tablet Total Allowed Fills: 1 Fills Dispensed: 0 Fish Oil 1200 mg oral capsule 2 capsule = 2,400 mg, By Mouth, Daily, # 180 capsule, 3 Refills, Maintenance, 08/07/23 7:06:00 AM EDT, [facility] #[id number], Partial fill upon patient request if the [...] 9:02:00 AM EST, Route to Pharmacy Electronically, [facility] #[id number], 175, cm, 12/20/24 8:43:00 EST, Height Start Date: 12/20/24 Status: Ordered Medication Dispense Status: Completed Quantity: 180.0 Unit: tablet Total Allowed Fills: 4 Fills Dispensed: 0 Humalog Kwik Pen 100 units/mL subcutaneous injection See Instructions, INJECT UP TO 16 UNITS UNDER THE SKIN THREE TIMES DAILY, # 90 mL, 0 Refills, Maintenance, 09/29/25 11:27:00 PM EST, [facility] #[id number], 173, cm, 06/20/25 7:35:00 EDT, Height,93.4, kg, 04/03/25 2:09:00 EDT, Dry Weight Start Date: 09/29/25 Status: Ordered Medication Dispense Status: Completed Quantity: 90.0 Unit: mL Total Allowed Fills: 1 Fills Dispensed: 0 Lantus Solostar Pen 100 units/mL subcutaneous solution See Instructions, INJECT 45 UNITS UNDER THE SKIN ONCE DAILY AT BEDTIME, # 45 mL, 5 Refills, 04/03/25 2:28:00 PM EDT, [facility] #[id number], 173, cm, 04/03/25 2:09:00 EDT, Height, 93.4, kg, 04/03/25 2:09:00 EDT, Dry Weight Start Date: 04/03/25 Status: Ordered Medication Dispense Status: Completed Quantity: 45.0 Unit: mL Total Allowed Fills: 6 Fills Dispensed: 0 levETIRAcetam 500 mg oral tablet 1 tablet, By Mouth, 3 times a day, # 270 tablet, 3 Refills, Maintenance, 06/20/25 8:06:00 AM EDT, [facility] #31006, 173, cm, 06/20/25 7:35:00 EDT, Height, 93.4, kg, 04/03/25 2:09:00 EDT, Dry Weight Start Date: 06/20/25 Status: Ordered Medication Dispense Status: Completed Quantity: 270.0 Unit: tablet Total Allowed Fills: 4 Fills Dispensed: 0 lisinopril 40 mg oral tablet 1 tablet = 40 mg, By Mouth, Daily, # 90 tablet, 3 Refills, Maintenance, 01/23/25 10:09:00 AM EDT, Tablet, [facility] #64611, Partial fill upon patient request if the [...] 3 Refills, Maintenance, 09/30/24 1:33:00 PM EST, [facility] #20658, 20, APPLY TOPICALLY TO THE AFFECTED AREA DAILY FOR 14 DAYS, 175, cm, 04/08/24 17:12:00 EDT, Height Start Date: 09/30/24 Status: Ordered Medication Dispense Status: Completed Quantity: 45.0 Unit: g Total Allowed Fills: 4 Fills Dispensed: 0 Pen [place], 31 G x 8 mm BD Ultra [...] Refills, Maintenance, 05/23/22 6:53:00 PM EDT, Liquid, [facility] #[id number], Partial fill upon patient request if the [...] 12:25:00 PM EST, Route to Pharmacy Electronically, [facility] #[id number], 173, cm, 06/20/25 7:35:00 EDT, Height, 93.4, [...] Team Personnel Name: Stephanie Sheridan MD Position: [facility] Physician - Primary Care Member Role: PCP Address: [address] [facility] [place] [address]- [place] Telecom: Name: Haylee Alcaraz [place] Position: [facility] Office Staff Member Role: Primary Care Nurse Name: Orlin Maldonado DO Position: Reference Physician Member Role: Lifetime Consulting Physician Address: [address] [place] [address]- Telecom: Name: Shaina Wilde RN Position: [facility] RN Member Role: Primary Care Nurse Care Team Related Persons Name: SALEEM REEDER Insurance Providers Guarantor name: SABINE REEDER [facility] Plan Information #: 1 Payer: [place] AZEVEDO Payer Identifier: NA Member Number: [id number] Group Number: [id number] Subscriber Identifier: NA Relationship to Subscriber: self Coverage Type: NA Coverage Verification Date: NA Telecom: Address:
--- OUTSIDE RECORDS SUMMARY | 2025-10-14 23:59 | XMS_ITS | Continuity of Care Document ---
Author Organization [facility] Address [address] [place] [address]- Care Team Providers Care Phytopathologist Name Role Phone Arvin ESTRADA, Stephanie Ray Primary Care Physician [phone] Encounter [facility] Date(s): 09/14/25 - 10/14/25 [facility] [address] [place] [address]- Encounter Type: Triage Allergies, Adverse Reactions, Alerts Substance Criticality Severity Reaction Reaction Severity Status ciprofloxacin Active penicillin Active sulfa drugs Active Dilantin Active Bee Stings Active Immunizations Given and Recorded Vaccine Date Status Refusal Reason pneumococcal 20-valent conjugate vaccine 08/29/23 Recorded SARS-CoV-2(COVID-19)mRNA-LNP vac([id number]) 08/29/23 Recorded SARS-CoV-2 (COVID-19) mRNA-1273 vaccine 09/16/22 R ecorded SARS-CoV-2 (COVID-19) mRNA-1273 vaccine 08/19/22 R ecorded pneumococcal 23-valent vaccine 1 07/09/22 Given pneumococcal 13-valent vaccine 06/26/17 Given Pneumococcal Vaccine (oldterm) 2 10/30/10 Given tetanus-diphtheria toxoids (Td) 3 10/26/03 Given 1Result Comment: [facility]: [id number] 2Admin Note: PATIENT REFUSED 3Admin Note: per [...] 0 Refills, Maintenance, 10/10/25 12:25:00 PM EST, [facility] #[id number], 173, cm, 06/20/25 7:35:00 EDT, Height, 93.4, kg, :09:00 EDT, Dry Weight Start Date: 10/10/25 Status: Ordered Medication Dispense Status: Completed Quantity: 84.0 Unit: each Total Allowed Fills: 1 Fills Dispensed: 0 amLODIPine 10 mg oral tablet 1 tablet, By Mouth, Daily, # 90 tablet, 3 Refills, Maintenance, 12/20/24 9:01:00 AM EST, [facility] #[id number], 175, cm, 12/20/24 8:43:00 EST, Height Start Date: 12/20/24 Status: Ordered Medication Dispense Status: Completed Quantity: 90.0 Unit: tablet Total Allowed Fills: 4 Fills Dispensed: 0 aspirin buffered 81 mg oral tablet 1 tablet = 81 mg, By Mouth, Daily, # 90 tablet, 3 Refills, Maintenance, 06/18/17 8:32:54 AM EDT, [facility]/pharmacy #1111 Start Date: 06/18/17 Stop Date: 06/13/18 Status: Ordered Medication Dispense Status: Completed Quantity: 90.0 Unit: tablet Total Allowed Fills: 4 Fills Dispensed: 0 atenolol 50 mg oral tablet 1, tablet, By Mouth, 2 times a day, # 180 tablet, Refills 3, Tot. Refills 3, Maintenance, 05/18/25 10:04:00 AM EDT, Route to Pharmacy Electronically, [facility] #[id number], 173, cm, 04/03/25 2:09:00 EDT, Height, 93.4, kg, 04/03/25 2:09:00 EDT, Dry Weight Start Date: 05/18/25 Status: Ordered Medication Dispense Status: Completed Quantity: 180.0 Unit: tablet Total Allowed Fills: 4 Fills Dispensed: 0 atorvastatin 20 mg oral tablet 1 tablet, By Mouth, Daily, # 90 tablet, 3 Refills, Maintenance, 12/20/24 9:02:00 AM EST, [facility] #[id number], 175, cm, 12/20/24 8:43:00 EST, Height Start Date: 12/20/24 Status: Ordered Medication Dispense Status: Completed Quantity: 90.0 Unit: tablet Total Allowed Fills: 4 Fills Dispensed: 0 carisoprodol 350 mg oral tablet See Instructions, TAKE 1 TABLET BY MOUTH FOUR TIMES DAILY FOR SPINAL STENOSIS, # 112 tablet, 0 Refills, Maintenance, 09/13/25 1:10:00 PM EST, [facility] #[id number], 173, cm, 06/20/25 7:35:00 EDT, Height, 93.4, [...] 1 Refills, Maintenance, 04/28/25 10:19:00 PM EDT, [facility] #[id number], 173, cm, 04/03/25 2:09:00 EDT, Height, 93.4, kg, 04/03/25 2:09:00 EDT, Dry Weight Start Date: 04/28/25 Status: Ordered Medication Dispense Status: Completed Quantity: 90.0 Unit: tablet Total Allowed Fills: 1 Fills Dispensed: 0 Fish Oil 1200 mg oral capsule 2 capsule = 2,400 mg, By Mouth, Daily, # 180 capsule, 3 Refills, Maintenance, 08/07/23 7:06:00 AM EDT, [facility] #[id number], Partial fill upon patient request if the [...] 9:02:00 AM EST, Route to Pharmacy Electronically, [facility] #[id number], 175, cm, 12/20/24 8:43:00 EST, Height Start Date: 12/20/24 Status: Ordered Medication Dispense Status: Completed Quantity: 180.0 Unit: tablet Total Allowed Fills: 4 Fills Dispensed: 0 Humalog Kwik Pen 100 units/mL subcutaneous injection See Instructions, INJECT UP TO 16 UNITS UNDER THE SKIN THREE TIMES DAILY, # 90 mL, 0 Refills, Maintenance, 09/29/25 11:27:00 PM EST, [facility] #[id number], 173, cm, 06/20/25 7:35:00 EDT, Height,93.4, kg, 04/03/25 2:09:00 EDT, Dry Weight Start Date: 09/29/25 Status: Ordered Medication Dispense Status: Completed Quantity: 90.0 Unit: mL Total Allowed Fills: 1 Fills Dispensed: 0 Lantus Solostar Pen 100 units/mL subcutaneous solution See Instructions, INJECT 45 UNITS UNDER THE SKIN ONCE DAILY AT BEDTIME, # 45 mL, 5 Refills, 04/03/25 2:28:00 PM EDT, [facility] #[id number], 173, cm, 04/03/25 2:09:00 EDT, Height, 93.4, kg, 04/03/25 2:09:00 EDT, Dry Weight Start Date: 04/03/25 Status: Ordered Medication Dispense Status: Completed Quantity: 45.0 Unit: mL Total Allowed Fills: 6 Fills Dispensed: 0 levETIRAcetam 500 mg oral tablet 1 tablet, By Mouth, 3 times a day, # 270 tablet, 3 Refills, Maintenance, 06/20/25 8:06:00 AM EDT, [facility] #[id number], 173, cm, 06/20/25 7:35:00 EDT, Height, 93.4, kg, 04/03/25 2:09:00 EDT, Dry Weight Start Date: 06/20/25 Status: Ordered Medication Dispense Status: Completed Quantity: 270.0 Unit: tablet Total Allowed Fills: 4 Fills Dispensed: 0 lisinopril 40 mg oral tablet 1 tablet = 40 mg, By Mouth, Daily, # 90 tablet, 3 Refills, Maintenance, 01/23/25 10:09:00 AM EDT, Tablet, [facility] #[id number], Partial fill upon patient request if the [...] 3 Refills, Maintenance, 09/30/24 1:33:00 PM EST, [facility] #05592, 20, APPLY TOPICALLY TO THE AFFECTED AREA DAILY FOR 14 DAYS, 175, cm, 04/08/24 17:12:00 EDT, Height Start Date: 09/30/24 Status: Ordered Medication Dispense Status: Completed Quantity: 45.0 Unit: g Total Allowed Fills: 4 Fills Dispensed: 0 Pen [place], 31 G x 8 mm BD Ultra [...] Refills, Maintenance, 05/23/22 6:53:00 PM EDT, Liquid, [facility] #[id number], Partial fill upon patient request if the [...] 12:25:00 PM EST, Route to Pharmacy Electronically, [facility] #[id number], 173, cm, 06/20/25 7:35:00 EDT, Height, 93.4, [...] Team Personnel Name: Stephanie Sheridan MD Position: [facility] Physician - Primary Care Member Role: PCP Address: [address] [facility] [place] [address]- [place] Telecom: Name: Haylee Alcaraz [place] Position: [facility] Office Staff Member Role: Primary Care Nurse Name: Orlin Maldonado DO Position: Reference Physician Member Role: Lifetime Consulting Physician Address: [address] [place] [phone]- Telecom: Name: Shaina Wilde RN Position: [facility] RN Member Role: Primary Care Nurse Care Team Related Persons Name: SALEEM REEDER Insurance Providers Guarantor name: SABINE REEDER [facility] Plan Information #: 1 Payer: [place]EVEDO Payer Identifier: NA Member Number: [id number] Group Number: [id number] Subscriber Identifier: NA Relationship to Subscriber: self Coverage Type: NA Coverage Verification Date: NA Telecom: Address:
--- OUTSIDE RECORDS SUMMARY | 2025-10-14 23:59 | XMS_ITS | Continuity of Care Document ---
Author Organization [facility] Address [address] [place] [address]- Care Team Providers Care Customer Support Manager Name Role Phone Arvin ESTRADA, Stephanie Ray Primary Care Physician Encounter [facility] Date(s): 09/14/25 - 10/14/25 [facility] [address] [place] [address]- Encounter Type: Triage Allergies, Adverse Reactions, Alerts Substance Criticality Severity Reaction Reaction Severity Status ciprofloxacin Active penicillin Active sulfa drugs Active Dilantin Active Bee Stings Active Immunizations Given and Recorded Vaccine Date Status Refusal Reason pneumococcal 20-valent conjugate vaccine 08/29/23 Recorded SARS-CoV-2(COVID-19)mRNA-LNP vac([id number]) 08/29/23 Recorded SARS-CoV-2 (COVID-19) mRNA-1273 vaccine 09/16/22 R ecorded SARS-CoV-2 (COVID-19) mRNA-1273 vaccine 08/19/22 R ecorded pneumococcal 23-valent vaccine 1 07/09/22 Given pneumococcal 13-valent vaccine 06/26/17 Given Pneumococcal Vaccine (oldterm) 2 10/30/10 Given tetanus-diphtheria toxoids (Td) 3 10/26/03 Given 1Result Comment: [facility]: [id number] 2Admin Note: PATIENT REFUSED 3Admin Note: per [...] 0 Refills, Maintenance, 10/10/25 12:25:00 PM EST, [facility] #[id number], 173, cm, 06/20/25 7:35:00 EDT, Height, 93.4, kg, :09:00 EDT, Dry Weight Start Date: 10/10/25 Status: Ordered Medication Dispense Status: Completed Quantity: 84.0 Unit: each Total Allowed Fills: 1 Fills Dispensed: 0 amLODIPine 10 mg oral tablet 1 tablet, By Mouth, Daily, # 90 tablet, 3 Refills, Maintenance, 12/20/24 9:01:00 AM EST, [facility] #[id number], 175, cm, 12/20/24 8:43:00 EST, Height Start Date: 12/20/24 Status: Ordered Medication Dispense Status: Completed Quantity: 90.0 Unit: tablet Total Allowed Fills: 4 Fills Dispensed: 0 aspirin buffered 81 mg oral tablet 1 tablet = 81 mg, By Mouth, Daily, # 90 tablet, 3 Refills, Maintenance, 06/18/17 8:32:54 AM EDT, [facility]/pharmacy #[id number] Start Date: 06/18/17 Stop Date: 06/13/18 Status: Ordered Medication Dispense Status: Completed Quantity: 90.0 Unit: tablet Total Allowed Fills: 4 Fills Dispensed: 0 atenolol 50 mg oral tablet 1, tablet, By Mouth, 2 times a day, # 180 tablet, Refills 3, Tot. Refills 3, Maintenance, 05/18/25 10:04:00 AM EDT, Route to Pharmacy Electronically, [facility] #[id number], 173, cm, 04/03/25 2:09:00 EDT, Height, 93.4, kg, 04/03/25 2:09:00 EDT, Dry Weight Start Date: 05/18/25 Status: Ordered Medication Dispense Status: Completed Quantity: 180.0 Unit: tablet Total Allowed Fills: 4 Fills Dispensed: 0 atorvastatin 20 mg oral tablet 1 tablet, By Mouth, Daily, # 90 tablet, 3 Refills, Maintenance, 12/20/24 9:02:00 AM EST, [facility] #[id number], 175, cm, 12/20/24 8:43:00 EST, Height Start Date: 12/20/24 Status: Ordered Medication Dispense Status: Completed Quantity: 90.0 Unit: tablet Total Allowed Fills: 4 Fills Dispensed: 0 carisoprodol 350 mg oral tablet See Instructions, TAKE 1 TABLET BY MOUTH FOUR TIMES DAILY FOR SPINAL STENOSIS, # 112 tablet, 0 Refills, Maintenance, 09/13/25 1:10:00 PM EST, [facility] #[id number], 173, cm, 06/20/25 7:35:00 EDT, Height, 93.4, [...] 1 Refills, Maintenance, 04/28/25 10:19:00 PM EDT, [facility] #[id number], 173, cm, 04/03/25 2:09:00 EDT, Height, 93.4, kg, 04/03/25 2:09:00 EDT, Dry Weight Start Date: 04/28/25 Status: Ordered Medication Dispense Status: Completed Quantity: 90.0 Unit: tablet Total Allowed Fills: 1 Fills Dispensed: 0 Fish Oil 1200 mg oral capsule 2 capsule = 2,400 mg, By Mouth, Daily, # 180 capsule, 3 Refills, Maintenance, 08/07/23 7:06:00 AM EDT, [facility] #[id number], Partial fill upon patient request if the [...] 9:02:00 AM EST, Route to Pharmacy Electronically, [facility] #[id number], 175, cm, 12/20/24 8:43:00 EST, Height Start Date: 12/20/24 Status: Ordered Medication Dispense Status: Completed Quantity: 180.0 Unit: tablet Total Allowed Fills: 4 Fills Dispensed: 0 Humalog Kwik Pen 100 units/mL subcutaneous injection See Instructions, INJECT UP TO 16 UNITS UNDER THE SKIN THREE TIMES DAILY, # 90 mL, 0 Refills, Maintenance, 09/29/25 11:27:00 PM EST, [facility] #[id number], 173, cm, 06/20/25 7:35:00 EDT, Height,93.4, kg, 04/03/25 2:09:00 EDT, Dry Weight Start Date: 09/29/25 Status: Ordered Medication Dispense Status: Completed Quantity: 90.0 Unit: mL Total Allowed Fills: 1 Fills Dispensed: 0 Lantus Solostar Pen 100 units/mL subcutaneous solution See Instructions, INJECT 45 UNITS UNDER THE SKIN ONCE DAILY AT BEDTIME, # 45 mL, 5 Refills, 04/03/25 2:28:00 PM EDT, [facility] #[id number], 173, cm, 04/03/25 2:09:00 EDT, Height, 93.4, kg, 04/03/25 2:09:00 EDT, Dry Weight Start Date: 04/03/25 Status: Ordered Medication Dispense Status: Completed Quantity: 45.0 Unit: mL Total Allowed Fills: 6 Fills Dispensed: 0 levETIRAcetam 500 mg oral tablet 1 tablet, By Mouth, 3 times a day, # 270 tablet, 3 Refills, Maintenance, 06/20/25 8:06:00 AM EDT, [facility] #[id number], 173, cm, 06/20/25 7:35:00 EDT, Height, 93.4, kg, 04/03/25 2:09:00 EDT, Dry Weight Start Date: 06/20/25 Status: Ordered Medication Dispense Status: Completed Quantity: 270.0 Unit: tablet Total Allowed Fills: 4 Fills Dispensed: 0 lisinopril 40 mg oral tablet 1 tablet = 40 mg, By Mouth, Daily, # 90 tablet, 3 Refills, Maintenance, 01/23/25 10:09:00 AM EDT, Tablet, [facility] #[id number], Partial fill upon patient request if the [...] 3 Refills, Maintenance, 09/30/24 1:33:00 PM EST, [facility] #[id number], 20, APPLY TOPICALLY TO THE AFFECTED AREA DAILY FOR 14 DAYS, 175, cm, 04/08/24 17:12:00 EDT, Height Start Date: 09/30/24 Status: Ordered Medication Dispense Status: Completed Quantity: 45.0 Unit: g Total Allowed Fills: 4 Fills Dispensed: 0 Pen [place], 31 G x 8 mm BD Ultra [...] Refills, Maintenance, 05/23/22 6:53:00 PM EDT, Liquid, [facility] #[id number], Partial fill upon patient request if the [...] 12:25:00 PM EST, Route to Pharmacy Electronically, [facility] #[id number], 173, cm, 06/20/25 7:35:00 EDT, Height, 93.4, [...] Team Personnel Name: Stephanie Sheridan MD Position: [facility] Physician - Primary Care Member Role: PCP Address: [address] [place] [address]- [place] Telecom: Name: Haylee Alcaraz [place] Position: [facility] Office Staff Member Role: Primary Care Nurse Name: Orlin Maldonado DO Position: Reference Physician Member Role: Lifetime Consulting Physician Address: [address] [place] [address]- Telecom: Name: Shaina Wilde RN Position: [facility] RN Member Role: Primary Care Nurse Care Team Related Persons Name: SALEEM REEDER Insurance Providers Guarantor name: SABINE REEDER [facility] Plan Information #: 1 Payer: [place] Payer Identifier: NA Member Number: [id number] Group Number: [id number] Subscriber Identifier: NA Relationship to Subscriber: self Coverage Type: NA Coverage Verification Date: NA Telecom: Address:
--- OUTSIDE RECORDS SUMMARY | 2025-10-14 23:59 | XMS_ITS | Continuity of Care Document ---
Author Organization [facility] Address [address] [place] [address]- Care Team Providers Care Cotton Ginner Name Role Phone Arvin ESTRADA, Stephanie Ray Primary Care Physician Encounter [facility] Date(s): 09/14/25 - 10/14/25 [facility] [address] [place] [address]- Encounter Type: Triage Allergies, Adverse Reactions, Alerts Substance Criticality Severity Reaction Reaction Severity Status ciprofloxacin Active penicillin Active sulfa drugs Active Dilantin Active Bee Stings Active Immunizations Given and Recorded Vaccine Date Status Refusal Reason pneumococcal 20-valent conjugate vaccine 08/29/23 Recorded SARS-CoV-2(COVID-19)mRNA-LNP vac([id number]) 08/29/23 Recorded SARS-CoV-2 (COVID-19) mRNA-1273 vaccine 09/16/22 R ecorded SARS-CoV-2 (COVID-19) mRNA-1273 vaccine 08/19/22 R ecorded pneumococcal 23-valent vaccine 1 07/09/22 Given pneumococcal 13-valent vaccine 06/26/17 Given Pneumococcal Vaccine (oldterm) 2 10/30/10 Given tetanus-diphtheria toxoids (Td) 3 10/26/03 Given 1Result Comment: [facility]: [id number] 2Admin Note: PATIENT REFUSED 3Admin Note: per [...] 0 Refills, Maintenance, 10/10/25 12:25:00 PM EST, [facility] #[id number], 173, cm, 06/20/25 7:35:00 EDT, Height, 93.4, kg, :09:00 EDT, Dry Weight Start Date: 10/10/25 Status: Ordered Medication Dispense Status: Completed Quantity: 84.0 Unit: each Total Allowed Fills: 1 Fills Dispensed: 0 amLODIPine 10 mg oral tablet 1 tablet, By Mouth, Daily, # 90 tablet, 3 Refills, Maintenance, 12/20/24 9:01:00 AM EST, [facility] #68781, 175, cm, 12/20/24 8:43:00 EST, Height Start Date: 12/20/24 Status: Ordered Medication Dispense Status: Completed Quantity: 90.0 Unit: tablet Total Allowed Fills: 4 Fills Dispensed: 0 aspirin buffered 81 mg oral tablet 1 tablet = 81 mg, By Mouth, Daily, # 90 tablet, 3 Refills, Maintenance, 06/18/17 8:32:54 AM EDT, [facility]/pharmacy #1111 Start Date: 06/18/17 Stop Date: 06/13/18 Status: Ordered Medication Dispense Status: Completed Quantity: 90.0 Unit: tablet Total Allowed Fills: 4 Fills Dispensed: 0 atenolol 50 mg oral tablet 1, tablet, By Mouth, 2 times a day, # 180 tablet, Refills 3, Tot. Refills 3, Maintenance, 05/18/25 10:04:00 AM EDT, Route to Pharmacy Electronically, [facility] #[id number], 173, cm, 04/03/25 2:09:00 EDT, Height, 93.4, kg, 04/03/25 2:09:00 EDT, Dry Weight Start Date: 05/18/25 Status: Ordered Medication Dispense Status: Completed Quantity: 180.0 Unit: tablet Total Allowed Fills: 4 Fills Dispensed: 0 atorvastatin 20 mg oral tablet 1 tablet, By Mouth, Daily, # 90 tablet, 3 Refills, Maintenance, 12/20/24 9:02:00 AM EST, [facility] #07655, 175, cm, 12/20/24 8:43:00 EST, Height Start Date: 12/20/24 Status: Ordered Medication Dispense Status: Completed Quantity: 90.0 Unit: tablet Total Allowed Fills: 4 Fills Dispensed: 0 carisoprodol 350 mg oral tablet See Instructions, TAKE 1 TABLET BY MOUTH FOUR TIMES DAILY FOR SPINAL STENOSIS, # 112 tablet, 0 Refills, Maintenance, 09/13/25 1:10:00 PM EST, [facility] #[id number], 173, cm, 06/20/25 7:35:00 EDT, Height, 93.4, [...] 1 Refills, Maintenance, 04/28/25 10:19:00 PM EDT, [facility] #06555, 173, cm, 04/03/25 2:09:00 EDT, Height, 93.4, kg, 04/03/25 2:09:00 EDT, Dry Weight Start Date: 04/28/25 Status: Ordered Medication Dispense Status: Completed Quantity: 90.0 Unit: tablet Total Allowed Fills: 1 Fills Dispensed: 0 Fish Oil 1200 mg oral capsule 2 capsule = 2,400 mg, By Mouth, Daily, # 180 capsule, 3 Refills, Maintenance, 08/07/23 7:06:00 AM EDT, [facility] #[id number], Partial fill upon patient request if the [...] 9:02:00 AM EST, Route to Pharmacy Electronically, [facility] #[id number], 175, cm, 12/20/24 8:43:00 EST, Height Start Date: 12/20/24 Status: Ordered Medication Dispense Status: Completed Quantity: 180.0 Unit: tablet Total Allowed Fills: 4 Fills Dispensed: 0 Humalog Kwik Pen 100 units/mL subcutaneous injection See Instructions, INJECT UP TO 16 UNITS UNDER THE SKIN THREE TIMES DAILY, # 90 mL, 0 Refills, Maintenance, 09/29/25 11:27:00 PM EST, [facility] #[id number], 173, cm, 06/20/25 7:35:00 EDT, Height,93.4, kg, 04/03/25 2:09:00 EDT, Dry Weight Start Date: 09/29/25 Status: Ordered Medication Dispense Status: Completed Quantity: 90.0 Unit: mL Total Allowed Fills: 1 Fills Dispensed: 0 Lantus Solostar Pen 100 units/mL subcutaneous solution See Instructions, INJECT 45 UNITS UNDER THE SKIN ONCE DAILY AT BEDTIME, # 45 mL, 5 Refills, 04/03/25 2:28:00 PM EDT, [facility] #[id number], 173, cm, 04/03/25 2:09:00 EDT, Height, 93.4, kg, 04/03/25 2:09:00 EDT, Dry Weight Start Date: 04/03/25 Status: Ordered Medication Dispense Status: Completed Quantity: 45.0 Unit: mL Total Allowed Fills: 6 Fills Dispensed: 0 levETIRAcetam 500 mg oral tablet 1 tablet, By Mouth, 3 times a day, # 270 tablet, 3 Refills, Maintenance, 06/20/25 8:06:00 AM EDT, [facility] #[id number], 173, cm, 06/20/25 7:35:00 EDT, Height, 93.4, kg, 04/03/25 2:09:00 EDT, Dry Weight Start Date: 06/20/25 Status: Ordered Medication Dispense Status: Completed Quantity: 270.0 Unit: tablet Total Allowed Fills: 4 Fills Dispensed: 0 lisinopril 40 mg oral tablet 1 tablet = 40 mg, By Mouth, Daily, # 90 tablet, 3 Refills, Maintenance, 01/23/25 10:09:00 AM EDT, Tablet, [facility] #32027, Partial fill upon patient request if the [...] 3 Refills, Maintenance, 09/30/24 1:33:00 PM EST, [facility] #[id number], 20, APPLY TOPICALLY TO THE AFFECTED AREA DAILY FOR 14 DAYS, 175, cm, 04/08/24 17:12:00 EDT, Height Start Date: 09/30/24 Status: Ordered Medication Dispense Status: Completed Quantity: 45.0 Unit: g Total Allowed Fills: 4 Fills Dispensed: 0 Pen [place], 31 G x 8 mm BD Ultra [...] Refills, Maintenance, 05/23/22 6:53:00 PM EDT, Liquid, [email or web address] #[id number], Partial fill upon patient request if the [...] 12:25:00 PM EST, Route to Pharmacy Electronically, [email or web address] #[id number], 173, cm, 06/20/25 7:35:00 EDT, Height, 93.4, [...] MD Position: [facility] Physician - Primary Care Member Role: PCP Address: [address] [facility] [place] [address]- [place] Telecom: Name: Haylee Alcaraz [place] Position: [facility] Office Staff Member Role: Primary Care Nurse Name: Orlin Maldonado DO Position: Reference Physician Member Role: [employer] Consulting Physician Address: [address] [place] [address]- Telecom: Name: Shaina Wilde RN Position: [facility] RN Member Role: Primary Care Nurse Care Team Related Persons Name: SALEEM REEDER Insurance Providers Guarantor name: SABINE REEDER [facility] Plan Information #: 1 Payer: [place] Payer Identifier: NA Member Number: [id number] Group Number: [id number] Subscriber Identifier: NA Relationship to Subscriber: self Coverage Type: NA Coverage Verification Date: NA Telecom: Address:
--- OUTSIDE RECORDS SUMMARY | 2025-10-14 23:59 | XMS_ITS | Continuity of Care Document ---
Author Organization [facility] Address [address] [place] [address]- Care Team Providers Care Vat Operator Name Role Phone Arvin ESTRADA, Stephanie Ray Primary Care Physician Encounter [facility] Date(s): 09/14/25 - 10/14/25 [facility] [address] [place] [address]- Encounter Type: Triage Allergies, Adverse Reactions, Alerts Substance Criticality Severity Reaction Reaction Severity Status ciprofloxacin Active penicillin Active sulfa drugs Active Dilantin Active Bee Stings Active Immunizations Given and Recorded Vaccine Date Status Refusal Reason pneumococcal 20-valent conjugate vaccine 08/29/23 Recorded SARS-CoV-2(COVID-19)mRNA-LNP vac([id number]) 08/29/23 Recorded SARS-CoV-2 (COVID-19) mRNA-1273 vaccine 09/16/22 R ecorded SARS-CoV-2 (COVID-19) mRNA-1273 vaccine 08/19/22 R ecorded pneumococcal 23-valent vaccine 1 07/09/22 Given pneumococcal 13-valent vaccine 06/26/17 Given Pneumococcal Vaccine (oldterm) 2 10/30/10 Given tetanus-diphtheria toxoids (Td) 3 10/26/03 Given 1Result Comment: [facility]: [id number] 2Admin Note: PATIENT REFUSED 3Admin Note: per [...] 0 Refills, Maintenance, 10/10/25 12:25:00 PM EST, [facility] #[id number], 173, cm, 06/20/25 7:35:00 EDT, Height, 93.4, kg, :09:00 EDT, Dry Weight Start Date: 10/10/25 Status: Ordered Medication Dispense Status: Completed Quantity: 84.0 Unit: each Total Allowed Fills: 1 Fills Dispensed: 0 amLODIPine 10 mg oral tablet 1 tablet, By Mouth, Daily, # 90 tablet, 3 Refills, Maintenance, 12/20/24 9:01:00 AM EST, [facility] #[id number], 175, cm, 12/20/24 8:43:00 EST, Height Start Date: 12/20/24 Status: Ordered Medication Dispense Status: Completed Quantity: 90.0 Unit: tablet Total Allowed Fills: 4 Fills Dispensed: 0 aspirin buffered 81 mg oral tablet 1 tablet = 81 mg, By Mouth, Daily, # 90 tablet, 3 Refills, Maintenance, 06/18/17 8:32:54 AM EDT, [facility]/pharmacy #[id number] Start Date: 06/18/17 Stop Date: 06/13/18 Status: Ordered Medication Dispense Status: Completed Quantity: 90.0 Unit: tablet Total Allowed Fills: 4 Fills Dispensed: 0 atenolol 50 mg oral tablet 1, tablet, By Mouth, 2 times a day, # 180 tablet, Refills 3, Tot. Refills 3, Maintenance, 05/18/25 10:04:00 AM EDT, Route to Pharmacy Electronically, [facility] #[id number], 173, cm, 04/03/25 2:09:00 EDT, Height, 93.4, kg, 04/03/25 2:09:00 EDT, Dry Weight Start Date: 05/18/25 Status: Ordered Medication Dispense Status: Completed Quantity: 180.0 Unit: tablet Total Allowed Fills: 4 Fills Dispensed: 0 atorvastatin 20 mg oral tablet 1 tablet, By Mouth, Daily, # 90 tablet, 3 Refills, Maintenance, 12/20/24 9:02:00 AM EST, [facility] #[id number], 175, cm, 12/20/24 8:43:00 EST, Height Start Date: 12/20/24 Status: Ordered Medication Dispense Status: Completed Quantity: 90.0 Unit: tablet Total Allowed Fills: 4 Fills Dispensed: 0 carisoprodol 350 mg oral tablet See Instructions, TAKE 1 TABLET BY MOUTH FOUR TIMES DAILY FOR SPINAL STENOSIS, # 112 tablet, 0 Refills, Maintenance, 09/13/25 1:10:00 PM EST, [facility] #[id number], 173, cm, 06/20/25 7:35:00 EDT, Height, 93.4, [...] 1 Refills, Maintenance, 04/28/25 10:19:00 PM EDT, [facility] #[id number], 173, cm, 04/03/25 2:09:00 EDT, Height, 93.4, kg, 04/03/25 2:09:00 EDT, Dry Weight Start Date: 04/28/25 Status: Ordered Medication Dispense Status: Completed Quantity: 90.0 Unit: tablet Total Allowed Fills: 1 Fills Dispensed: 0 Fish Oil 1200 mg oral capsule 2 capsule = 2,400 mg, By Mouth, Daily, # 180 capsule, 3 Refills, Maintenance, 08/07/23 7:06:00 AM EDT, [facility] #54957, Partial fill upon patient request if the [...] 9:02:00 AM EST, Route to Pharmacy Electronically, [facility] #[id number], 175, cm, 12/20/24 8:43:00 EST, Height Start Date: 12/20/24 Status: Ordered Medication Dispense Status: Completed Quantity: 180.0 Unit: tablet Total Allowed Fills: 4 Fills Dispensed: 0 Humalog Kwik Pen 100 units/mL subcutaneous injection See Instructions, INJECT UP TO 16 UNITS UNDER THE SKIN THREE TIMES DAILY, # 90 mL, 0 Refills, Maintenance, 09/29/25 11:27:00 PM EST, [facility] #[id number], 173, cm, 06/20/25 7:35:00 EDT, Height,93.4, kg, 04/03/25 2:09:00 EDT, Dry Weight Start Date: 09/29/25 Status: Ordered Medication Dispense Status: Completed Quantity: 90.0 Unit: mL Total Allowed Fills: 1 Fills Dispensed: 0 Lantus Solostar Pen 100 units/mL subcutaneous solution See Instructions, INJECT 45 UNITS UNDER THE SKIN ONCE DAILY AT BEDTIME, # 45 mL, 5 Refills, 04/03/25 2:28:00 PM EDT, [facility] #[id number], 173, cm, 04/03/25 2:09:00 EDT, Height, 93.4, kg, 04/03/25 2:09:00 EDT, Dry Weight Start Date: 04/03/25 Status: Ordered Medication Dispense Status: Completed Quantity: 45.0 Unit: mL Total Allowed Fills: 6 Fills Dispensed: 0 levETIRAcetam 500 mg oral tablet 1 tablet, By Mouth, 3 times a day, # 270 tablet, 3 Refills, Maintenance, 06/20/25 8:06:00 AM EDT, [facility] #[id number], 173, cm, 06/20/25 7:35:00 EDT, Height, 93.4, kg, 04/03/25 2:09:00 EDT, Dry Weight Start Date: 06/20/25 Status: Ordered Medication Dispense Status: Completed Quantity: 270.0 Unit: tablet Total Allowed Fills: 4 Fills Dispensed: 0 lisinopril 40 mg oral tablet 1 tablet = 40 mg, By Mouth, Daily, # 90 tablet, 3 Refills, Maintenance, 01/23/25 10:09:00 AM EDT, Tablet, [facility] #81412, Partial fill upon patient request if the [...] 3 Refills, Maintenance, 09/30/24 1:33:00 PM EST, [facility] #[id number], 20, APPLY TOPICALLY TO THE AFFECTED AREA DAILY FOR 14 DAYS, 175, cm, 04/08/24 17:12:00 EDT, Height Start Date: 09/30/24 Status: Ordered Medication Dispense Status: Completed Quantity: 45.0 Unit: g Total Allowed Fills: 4 Fills Dispensed: 0 Pen [place], 31 G x 8 mm BD Ultra [...] Refills, Maintenance, 05/23/22 6:53:00 PM EDT, Liquid, [facility] #[id number], Partial fill upon patient request if the [...] 12:25:00 PM EST, Route to Pharmacy Electronically, [facility] #[id number], 173, cm, 06/20/25 7:35:00 EDT, Height, 93.4, [...] Team Personnel Name: Stephanie Sheridan MD [facility] Physician - Primary Care Member Role: PCP Address: [address] [place] [address]- [place] Telecom: Name: Haylee Alcaraz [place] Position: [facility] Office Staff Member Role: Primary Care Nurse Name: Orlin Maldonado DO Position: Reference Physician Member Role: Lifetime Consulting Physician Address: [address] [place] [address]- Telecom: Name: Shaina Wilde RN Position[facility] RN Member Role: Primary Care Nurse Care Team Related Persons Name: SALEEM REEDER Insurance Providers Guarantor name: SABINE REEDER [facility] Plan Information #: 1 Payer: [place] Payer Identifier: NA Member Number: [id number] Group Number: [id number] Subscriber Identifier: NA Relationship to Subscriber: self Coverage Type: NA Coverage Verification Date: NA Telecom: Address:
[2025-10-16 13:30] LABS: FIT1 NEGATIVE (NEGATIVE)
[2025-10-16 13:31] LABS: FIT Int Ctl YES; FIT Lot M502755; FIT2 NEGATIVE (NEGATIVE)
--- OUTSIDE RECORDS SUMMARY | 2025-10-16 16:19 | XMS_ITS | Clinical Summary ---
Author Organization [facility] Address [address] [address] Care Team Providers Care Laboratory Manager Name Role Phone Pcp, No Primary Care Provider [phone] Social History Tobacco Use Types Packs/Day Years Used Date Smoking Tobacco: Never Assessed Sex and Gender Information Value Date Recorded Sex Assigned at Not on file Legal Sex Male 3:49 PM EST Gender Identity Not on file Sexual Orientation Not on file Plan of Treatment Not on file Medical Devices Not on file Insurance [facility] Care Teams Laboratory Manager Relationship Specialty Start Date End Date Pcp, Savanah PCP - General Family Medicine 12/08/21
== END 2025-10-13 13:01 | disposition home or self-care (01) ==
LOC: HO.LNP 13:00
PROVIDERS: Visit Provider Nurse Practitioner Family
DX: D50.9 Iron deficiency anemia, unspecified (principal)
CPT/HCPCS: 82270; 82274